=== PATIENT | male | born 1990 | race Caucasian/White ===

== ENCOUNTER 2016-11-01 11:59 | Emergency (ER) | payer OTHER ==
[~2016-11-01] VITALS: Ht 170.2 cm; Wt 59.0 kg
[2016-11-01 12:05] VITALS: BP 128/78
== END 2016-11-01 12:41 | disposition home or self-care (01) ==
LOC: ED 12:35
DX: R00.2 Palpitations (principal)
CPT/HCPCS: 93005; 99283